=== PATIENT | female | born 1980 | race Caucasian/White ===

== ENCOUNTER 2018-05-04 15:27 | Emergency (ER) | payer MEDICAID ==
[~2018-05-04] VITALS: Ht 160 cm; Wt 92.6 kg
[2018-05-04 15:51] VITALS: BP 115/69; Ht 160 cm; Wt 92.6 kg
== END 2018-05-04 18:23 | disposition left against medical advice (07) ==
LOC: ED 15:27
DX: Z53.21 Procedure and treatment not carried out due to patient leaving prior to being seen by health care provider (principal)